=== PATIENT | male | born 1940 | race African-American/Black ===

== ENCOUNTER 2017-08-17 17:42 | Emergency (ER) | payer MEDICARE ==
[~2017-08-17] VITALS: Ht 177.8 cm; Wt 91.0 kg
[~2017-08-17 17:42] MED LIST: DIXL10 PO; LOT105 PO; MELO-106 PO; METO-539 PO; TAMS0.4C31 PO
[2017-08-17 17:49] VITALS: BP 164/97
== END 2017-08-17 20:04 | disposition home or self-care (01) ==
LOC: ER 20:04
DX: I10 Essential (primary) hypertension (principal)
CPT/HCPCS: 99283